=== PATIENT | male | born 1980 | race Caucasian/White ===

== ENCOUNTER 2019-03-26 08:54 | Day surgery (SDC) | payer BC ==
[2019-03-26] VITALS (10 sets, daily range): BP systolic 96–108; BP diastolic 63–84; PULSE 60–91; TEMP 97.8
[~2019-03-26] VITALS: Ht 180.3 cm; Wt 106.0 kg
[2019-03-26 09:29] LABS: HEMATOCRIT 45.4 % (42.0-52.0); HEMOGLOBIN 15.1 g/dl (13.5-18.0); MEAN CELL VOLUME 87 fl (80.0-100.0); MEAN CORPUSCULAR HEMOGLOBIN 29 pg (27.0-31.0); MEAN CORPUSCULAR HGB CONC 33 g/dl (33.0-37.0); MEAN PLATELET VOLUME 8.5 fl (7.4-10.4); PLATELET COUNT 355 K/mm3 (130-400); RED BLOOD COUNT 5.25 M/mm3 (4.20-5.60); REDCELL DISTRIBUTION WIDTH-CV 12.7 % (11.5-14.5)
[2019-03-26] MEDS ORDERED: TRICOR145 MG PO (09:30)
[2019-03-26] MEDS ORDERED: PROZAC 10MG10 MG PO (09:31)
[2019-03-26] MEDS ORDERED: VYVANSE40 MG PO (09:31)
[2019-03-26] MEDS ORDERED: NEXIUM 20MG20 MG PO (09:31)
[2019-03-26] MEDS ORDERED: CHANTIX 1MG1 MG PO (09:32)
[2019-03-26 09:40] LABS: CALCIUM 9.3 mg/dL (8.4-10.2); CREATININE, serum 0.96 (0.66-1.25)
--- NOTE | 2019-03-26 11:00 | NUR ---
Pt resting well in bed, at bedside. Pt informed procedure delayed aprox 30 min.
--- NOTE | 2019-03-26 13:00 | NUR ---
Pt resting well in bed, at bedside. Pt informed an emergent case was going back before him. finishing lab technician estimates 30 more minutes.
--- NOTE | 2019-03-26 15:00 | NUR ---
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
--- NOTE | 2019-03-26 15:28 | NUR ---
PLEASE SEE MERGE FOR ALL MEDICATION ADMINISTRATION TIMES, RASS ASSESSMENTDURING AND POST PROCEDURE.
--- NOTE | 2019-03-26 16:00 | NUR ---
Pt returned to [facility] 9 per bed s/p heart cath. Pt resting well, at bedside.
--- NOTE | 2019-03-26 16:19 | NUR ---
Report to Benjamin Prajapati RN who assumed care at this time.
--- NOTE | 2019-03-26 17:14 | NUR ---
Pt tolerating intake with no N/V. Discharge instructions were reviewed with pt/so. Pt/SO voice understanding.
--- NOTE | 2019-03-26 18:37 | NUR ---
Pt was up and ambulating in and around the unit with no complications. Pt voided with no complications. IV was discontinued with catheter tip intact, no phlebitis or infiltration. Pt was discharged via w/c to the care of spouse in private vehicle with discharge instructions in hand.
== END 2019-03-26 18:40 | disposition home or self-care (01) ==
LOC: COL.CAR 08:54 → EDBD 08:54 → COL.CAR 09:00
PROVIDERS: Internal Medicine Cardiovascular Disease
DX: R07.9 Chest pain, unspecified (principal); R94.39 Abnormal result of other cardiovascular function study; I25.2 Old myocardial infarction; F17.210 Nicotine dependence, cigarettes, uncomplicated; Z83.3 Family history of diabetes mellitus; Z82.49 Family history of ischemic heart disease and other diseases of the circulatory system
CPT/HCPCS: C1887; J1644; J2250; J3010; Q9967